=== PATIENT | male | born 1945 | race Asian ===

== ENCOUNTER → 2016-07-21 | Outpatient (CLI) | payer OTHER ==
[~2016-07-21] MED LIST: CHOL1TAB42; FURO-85 PO; PROP10TA7 PO; PRT/20 PO; ZNTT/150 PO
--- NOTE | 2016-07-21 11:55 | DIAGNOSTIC IMAGING REPORT ---
TWO VIEW CHEST CLINICAL HISTORY: Cough. FINDINGS: PA and lateral chest radiographs are compared to study dated 12/08/2015 and correlated with chest CT dated 12/24/2015. The heart is mildly enlarged and there is atherosclerotic calcification of the thoracic aorta. The pulmonary vascular structures noncongested. There is mild chronic elevation of the right hemidiaphragm. The lungs and pleural spaces are clear. There is no pneumothorax. The skeletal structures are osteopenic. Degenerative change is noted throughout the thoracic spine. IMPRESSION: Cardiac enlargement with no active disease in the chest. Electronically signed by: Foster Vang M.D. 07/21/2016 11:54 AM Dictated Date/Time: 07/21/2016 11:53 AM
== END | disposition home or self-care (01) ==
LOC: C.RAD1850 11:18
PROVIDERS: ATTEND Family Medicine
DX: R05 Cough (principal); I51.7 Cardiomegaly